=== PATIENT | male | born 1965 | race American Indian/Alaskan Native ===

== ENCOUNTER 2017-09-21 21:34 | Emergency (ER) | payer MEDICAID ==
[2017-09-21 22:24] VITALS: RESP 18
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
[2017-09-22 02:05] VITALS: BP 105/51; PULSE 77; TEMP 98.3; O2SAT 99
--- NOTE | 2017-09-22 20:10 | US ---
HISTORY: Leg pain and swelling. Evaluate for DVT PHYSICIAN(S): Natalio Fernandez MD. TECHNIQUE: Duplex sonography and color-flow Doppler with graded compression were used to evaluate the deep venous systems of both lower extremities. FINDINGS: The visualized deep venous systems of both lower extremities are sonographically normal and compressible. Normal wave forms and augmentation are seen. There is no sonographic evidence for deep venous thrombosis in the visualized segments of both lower extremities. IMPRESSION: No sonographic evidence for deep venous thrombosis in the visualized segments of both lower extremities.
== END 2017-09-22 02:25 | disposition home or self-care (01) ==
LOC: ED 21:34 → MERGE 21:34 → ED 09-22 02:25
DX: S86.911A Strain of unspecified muscle(s) and tendon(s) at lower leg level, right leg, initial encounter (principal); X58.XXXA Exposure to other specified factors, initial encounter; Y92.9 Unspecified place or not applicable; I10 Essential (primary) hypertension